=== PATIENT | female | born 1980 | race Caucasian/White ===

== ENCOUNTER → 2017-05-30 13:37 | Emergency (ER) | payer SELFPAY ==
[~2017-05-30] VITALS: Ht 152.4 cm; Wt 52.2 kg
[~2017-05-30 13:37] MED LIST: 0.9 % SODIUM CHLORIDE 10 ML DISP.SYRIN. IV PRN; AMOX1TAB61 PO; BENZ100C PO; HYDR-971 PO; IV NORMAL SALINE 1,000ML 1,000 ML IV ONE; IV NORMAL SALINE 50ML 50 ML ONE; LEVO500T59 PO; LIDOCAINE 1% Multi-Dose 20 ML VIAL. SQ ONE; MUPI15CR TP; NALOXONE 2 MG/2 ML DISP.SYRIN. IV ONE; NOREPINEPHRINE BITARTRATE 8 MG in IV NORMAL SALINE 250ML 250 ML IV PRN; PIPERACILLIN/TAZOBACTAM 4.5 GM VIAL IV ONE; PIPERACILLIN/TAZOBACTAM 4.5 GM in IV NORMAL SALINE 50ML 50 ML IV ONE; SULF1TAB24 PO; VANCOMYCIN 1.25 GM in IV NORMAL SALINE 250ML 250 ML IV ONE; VANCOMYCIN PER PHARMACY MC ONE
[2017-05-30 14:19] LABS: BASO % 0 % (0-3); EOS % 0 % (0-3); HEMATOCRIT 39.3 % (36.0-47.0); HEMOGLOBIN 13.4 g/dL (12.0-15.5); LYMPH # 0.9 x10^3/uL (1.0-4.8); LYMPH % 12 % (24-48); MEAN CORPUSCULAR HEMOGLOBIN 29 pg (25-35); MEAN CORPUSCULAR HGB CONC 34 g/dL (31-37); MEAN CORPUSCULAR VOLUME 84 fL (79-100); MONO # 0.5 x10^3/uL (0.0-1.1); MONO % 6 % (0-9); NEUT # 6.6 x10^3uL (1.8-7.7); NEUT % 82 % (31-73); PLATELET COUNT 196 x10^3/uL (140-400); RED BLOOD COUNT 4.68 x10^6/uL (3.50-5.40); RED CELL DISTRIBUTION WIDTH 14.2 % (11.5-14.5); WHITE BLOOD COUNT 8.1 x10^3/uL (4.0-11.0)
[2017-05-30 14:29] LABS: ALBUMIN 3.1 g/dL (3.4-5.0); ALBUMIN/GLOBULIN RATIO 0.8 (1.0-1.7); CALCIUM 8.3 mg/dL (8.5-10.1); CREATININE 0.8 mg/dL (0.6-1.0); GFR 82.1; POTASSIUM 3.7 mmol/L (3.5-5.1); TOTAL BILIRUBIN 0.3 mg/dL (0.2-1.0); TOTAL PROTEIN 6.8 g/dL (6.4-8.2)
[2017-05-30 14:30] LABS: PREG TEST PT QUAL NEGATIVE (NEG)
--- NOTE | 2017-05-30 15:11 | RAD ---
History: Cellulitis, drug use. Comparison: None. Findings: AP and lateral views of the right forearm. No radiopaque soft tissue foreign body is seen. No acute osseous abnormality is identified. Bandage has been placed placed on the dorsal aspect of the forearm. There is a focal dorsal forearm soft tissue swelling. No focal soft tissue gas is seen. Impression: 1. Dorsal soft tissue swelling of the forearm. 2. No acute osseous identified. Electronically signed by: Quoc Jaimes MD (05/30/2017 3:08 PM) [place] [id number]
[2017-05-30 17:00] VITALS: BP 82/46
--- NOTE | 2017-05-30 17:08 | PHYS DOC ---
Past History Past Medical History: Other Past Surgical History: Cholecystectomy Alcohol Use: None Drug Use: Opiates Adult General Chief Complaint Chief Complaint: DRUG ABUSE HPI HPI Patient is a 36 year old F who presents after overdosing on IV heroin. She will arrived to the emergency room via EMS after being given Narcan intranasally. Initially her respirations were 4/m. She did respond to the Narcan. She also has a wound on her right arm this and present for 2-3 days has spread rapidly. She notes mild drainage, moderate swelling and moderate pain. She believes that this is at the site of previous IV drug use. She has no other associated symptoms at this time Review of Systems Review of Systems Constitutional: Denies fever or chills [] Eyes: Denies change in visual acuity, redness, or eye pain [] HENT: Denies nasal congestion or sore throat [] Respiratory: Denies cough or shortness of breath [] Cardiovascular: No additional information not addressed in HPI [] GI: Denies abdominal pain, nausea, vomiting, bloody stools or diarrhea [] : Denies dysuria or hematuria [] Musculoskeletal: Denies back pain or joint pain [] Integument: Negative except history of present illness Neurologic: Denies headache, focal weakness or sensory changes [] Endocrine: Denies polyuria or polydipsia [] Psych: Denies suicidal or homicidal ideations All other systems were reviewed and found to be within normal limits, except as documented in this note. Family History Family History No pertinent family medical history was reported Current Medications Current Medications Current medications were reviewed Current Medications Medications (Trade) Dose Ordered Sig/Nas Start Time Stop Time Status Last Admin Dose Admin Lidocaine HCl 20 ml 1X ONCE 05/30/17 16:00 05/30/17 16:01 DC Naloxone HCl (Narcan) 2 mg 1X ONCE 05/30/17 15:30 05/30/17 15:31 DC Norepinephrine Bitartrate 8 mg/ Sodium Chloride 258 ml @ 0 mls/hr CONT PRN 05/30/17 14:00 Piperacillin Sod/ Tazobactam Sod (Zosyn) 4.5 gm STK-MED ONCE 05/30/17 14:08 05/30/17 14:09 DC Piperacillin Sod/ Tazobactam Sod 4.5 gm/Sodium Chloride 50 ml @ 100 mls/hr 1X ONCE 05/30/17 14:30 05/30/17 14:59 DC 05/30/17 14:16 100 MLS/HR Sodium Chloride 50 ml @ As Directed STK-MED ONCE 05/30/17 14:08 05/30/17 14:09 DC Sodium Chloride (Normal Saline Flush) 10 ml QSHIFT PRN 05/30/17 14:00 Vancomycin HCl (Vanco Per Pharmacy) 1 each 1X ONCE 05/30/17 14:00 05/30/17 14:16 DC Vancomycin HCl 1.25 gm/Sodium Chloride 250 ml @ 166.667 mls/hr 1X ONCE 05/30/17 14:30 05/30/17 15:59 DC 05/30/17 14:57 166.667 MLS/HR Allergies Allergies Allergies Coded Allergies Type Severity Reaction Last Updated Verified No Known Drug Allergies 02/04/16 No Physical Exam Physical Exam Constitutional: Well developed, well nourished, intermittently lethargic HENT: Normocephalic, atraumatic Eyes: EOMI, conjunctiva normal, no discharge. [] Neck: Normal range of motion, no tenderness, supple, no stridor. [] Cardiovascular:Heart rate regular rhythm, r Lungs & Thorax: Bilateral breath sounds clear to auscultation [] Abdomen: Bowel sounds normal, soft, no tenderness, no masses, no pulsatile masses. [] Skin: Right forearm: Erythema covering approximately 50% of the forearm mostly on the lateral side. Abscess noted with approximately 3 cm in diameter and black central eschar. Multiple areas of flocculence noted. Moderate swelling in the entire right forearm with significant pain to minimal palpation Back: No tenderness, no CVA tenderness. [] Extremities: No tenderness, no cyanosis, no clubbing, ROM intact, no edema. [] Neurologic: Alert and oriented X 3, normal motor function, normal sensory function, no focal deficits noted. [] Psychologic: Affect normal, judgement normal, mood normal. [] Current Patient Data Vital Signs Please review nursing documentation for vital signs Lab Results Laboratory Tests Test 05/30/17 14:03 White Blood Count 8.1 x10^3/uL (4.0-11.0) Red Blood Count 4.68 x10^6/uL (3.50-5.40) Hemoglobin 13.4 g/dL (12.0-15.5) Hematocrit 39.3 % (36.0-47.0) Mean Corpuscular Volume 84 fL (79-100) Mean Corpuscular Hemoglobin 29 pg (25-35) Mean Corpuscular Hemoglobin Concent 34 g/dL (31-37) Red Cell Distribution Width 14.2 % (11.5-14.5) Platelet Count 196 x10^3/uL (140-400) Neutrophils (%) (Auto) 82 % (31-73) H Lymphocytes (%) (Auto) 12 % (24-48) L Monocytes (%) (Auto) 6 % (0-9) Eosinophils (%) (Auto) 0 % (0-3) Basophils (%) (Auto) 0 % (0-3) Neutrophils # (Auto) 6.6 x10^3uL (1.8-7.7) Lymphocytes # (Auto) 0.9 x10^3/uL (1.0-4.8) L Monocytes # (Auto) 0.5 x10^3/uL (0.0-1.1) Eosinophils # (Auto) 0.0 x10^3/uL (0.0-0.7) Basophils # (Auto) 0.0 x10^3/uL (0.0-0.2) Sodium Level 132 mmol/L (136-145) L Potassium Level 3.7 mmol/L (3.5-5.1) Chloride Level 99 mmol/L (98-107) Carbon Dioxide Level 29 mmol/L (21-32) Anion Gap 4 (6-14) L Blood Urea Nitrogen 14 mg/dL (7-20) Creatinine 0.8 mg/dL (0.6-1.0) Estimated GFR (Cockcroft-Gault) 82.1 BUN/Creatinine Ratio 18 (6-20) Glucose Level 141 mg/dL (70-99) H Lactic Acid Level 1.3 mmol/L (0.4-2.0) Calcium Level 8.3 mg/dL (8.5-10.1) L Total Bilirubin 0.3 mg/dL (0.2-1.0) Aspartate Amino Transferase (AST) 23 U/L (15-37) Alanine Aminotransferase (ALT) 37 U/L (14-59) Alkaline Phosphatase 100 U/L (46-116) Total Protein 6.8 g/dL (6.4-8.2) Albumin 3.1 g/dL (3.4-5.0) L Albumin/Globulin Ratio 0.8 (1.0-1.7) L Serum Test, Qualitative Negative (NEG) EKG EKG [] Radiology/Procedures Radiology/Procedures Forearm x-ray Impressions: Soft tissue swelling without noted gas Course & Med Decision Making Course & Med Decision Making Pertinent Labs and Imaging studies reviewed. (See chart for details) Jodee was consented for incision and drainage. Her wound was cleaned with chlorhexidine wipes prior to anesthetizing the wound with lidocaine 1%. Her wound was then opened using an 11 blade scalpel. Moderate amount of purulent bloody drainage was noted. Her wound was packed with iodoform gauze and covered with gauze for observance and Kerlix. She was given IV fluids, vancomycin and Zosyn. She also did require a second dose of Narcan. It was explained to her that the Narcan is very short acting. It was explained that heroin is likely to last longer than the Narcan and that she still may from an overdose of heroin if she leaves. She did express understanding. Admission was strongly recommended and declined. was advised that her condition may result in or permanent disability. Jodee expressed understanding and continued to wish to leave AGAINST MEDICAL ADVICE Dragon Disclaimer Dragon Disclaimer This electronic medical record was generated, in whole or in part, using a voice recognition dictation system. Departure Departure: Impression: Primary Impression: Cellulitis and abscess of upper arm and forearm Additional Impression: Accidental heroin overdose Disposition: 07 AGAINST MEDICAL ADVICE Condition: GRAVE Referrals: PCP,NO (PCP) Patient Instructions: Heroin Abuse and Withdrawal Additional Instructions: Jodee was seen in the emergency department for an accidental heroin overdose and skin infection. She was treated with Narcan to reverse the heroin on 2 different occasions. She was advised that the Narcan is very short acting and that the heroin is likely to continue to affect her after the Narcan wears off. It was explained that she could still have a fatal accident from this heroin usage. Her wound was cleaned and drained. She was advised that admission for IV antibiotics would be the best treatment. She was advised that without hospitalization complications may result in or permanent disability. She was given a prescription for oral antibiotics as she decided to leave AGAINST MEDICAL ADVICE Scripts Amoxicillin/Potassium Clav (AUGMENTIN 875-125 TABLET) 1 Each Tablet 1 TAB PO BID for 14 Days, #28 TAB Prov: LEYLA OLSEN MD 05/30/17 Problem Qualifiers LEYLA OLSEN MD May 30, 2017 17:08
== END | disposition left against medical advice (07) ==
LOC: ER 13:37
DX: L03.113 Cellulitis of right upper limb (principal); T40.1X1A Poisoning by heroin, accidental (unintentional), initial encounter; Y92.89 Other specified places as the place of occurrence of the external cause; F11.10 Opioid abuse, uncomplicated
CPT/HCPCS: 10060; 36415; 73090; 80053; 83605; 84703; 85025; 87040; 96365; 96366; 96367; 99285; J2543; J3370; J7050; J7030

== ENCOUNTER 2019-12-07 21:13 | Emergency (ER) | payer SELFPAY ==
[~2019-12-07] VITALS: Ht 165.1 cm; Wt 60.4 kg
[~2019-12-07 21:13] MED LIST changes: -0.9 % SODIUM CHLORIDE 10 ML DISP.SYRIN. IV PRN; +HYDR-3165 PO; -HYDR-971 PO; -IV NORMAL SALINE 1,000ML 1,000 ML IV ONE; -IV NORMAL SALINE 50ML 50 ML ONE; -LIDOCAINE 1% Multi-Dose 20 ML VIAL. SQ ONE; -NALOXONE 2 MG/2 ML DISP.SYRIN. IV ONE; -NOREPINEPHRINE BITARTRATE 8 MG in IV NORMAL SALINE 250ML 250 ML IV PRN; -PIPERACILLIN/TAZOBACTAM 4.5 GM VIAL IV ONE; -PIPERACILLIN/TAZOBACTAM 4.5 GM in IV NORMAL SALINE 50ML 50 ML IV ONE; -VANCOMYCIN 1.25 GM in IV NORMAL SALINE 250ML 250 ML IV ONE; -VANCOMYCIN PER PHARMACY MC ONE
--- NOTE | 2019-12-07 21:30 | PHYS DOC ---
Past History Past Medical History: No Pertinent History Past Surgical History: No Surgical History Alcohol Use: None Drug Use: Heroin Adult General Chief Complaint Chief Complaint: OB/UTERINE CONTRACTIONS HPI HPI Patient is a 39-year-old female who presents status post water breaking. She reports being -0-2-3 and estimates being around her due date. She has not sought any care, has not taken any medications, just found out she was 1 week ago. She reports last period was greater than 9 months ago. She has long history of drug abuse, specifically heroin, but is not abused this in past 1 year per her report. She reports "I am not supposed to be ". Reports previous deliveries were spontaneous vaginal deliveries. 2 abortions were elective in nature. She does not know her blood type. Review of Systems Review of Systems Fourteen body systems of review of systems have been reviewed. See HPI for pertinent positives and negative responses, other alexander all other systems are negative, non-pertinent or non-contributory Allergies Allergies Allergies Coded Allergies Type Severity Reaction Last Updated Verified No Known Drug Allergies 02/04/16 No Physical Exam Physical Exam Constitutional: Well developed, well nourished, no acute distress, non-toxic appearance. HENT: Normocephalic, atraumatic, bilateral external ears normal, oropharynx moist, no oral exudates, nose normal. Eyes: PERRLA, EOMI, conjunctiva normal, no discharge. Neck: Normal range of motion, no tenderness, supple, no stridor. Cardiovascular: Heart rate regular, sinus rhythm, no murmurs rubs or gallops Lungs & Thorax: Bilateral breath sounds clear to auscultation Abdomen: Bowel sounds normal, gravid abdomen soft, no tenderness, no masses, no pulsatile masses. Nonsurgical abdomen, no peritoneal signs. heart tones 138. head down, OA presentation Skin: Warm, dry, no erythema, no rash. Back: No tenderness, no CVA tenderness. Extremities: No tenderness, no cyanosis, no clubbing, ROM intact, no edema. Track ray present on bilateral upper extremities : Unremarkable external genitalia. Cervical dilation 6 cm / 80% effacement/+1 station Neurologic: Alert and oriented X 3, grossly normal motor & sensory function, no focal deficits noted. Psychologic: Tearful, anxious mood, judgement normal. Current Patient Data Vital Signs Vital Signs Date Time Temp Pulse Resp B/P (MAP) Pulse Ox O2 Delivery O2 Flow Rate FiO2 12/07/19 21:43 98.2 95 16 113/64 (80) 98 Room Air 12/07/19 21:22 98.2 112 16 114/74 (87) 98 Room Air EKG EKG [] Radiology/Procedures Radiology/Procedures [] Course & Med Decision Making Course & Med Decision Making Patient immediately wheeled to trauma bay and seen and evaluated by myself ABCs unremarkable Expedited history and physical exam obtained, patient obviously and in first stage of labor As mentioned above, cervical check by myself remarkable for 6 cm dilation/80% effacement/+1 station. heart tones 138. Patient denies any coordinated/contractions and no way to measure this in our ER Case discussed with on-call [facility] PARTUM NURSE, Dr. Young, joint decision to transfer emergently to [facility] for higher acuity of care I discussed this with patient. I discussed that given close proximity to [facility], my professional judgment in consultation with Dr. Young determined there was sufficient time to emergently transport patient for POST PARTUM NURSE care Although patient in labor, patient stable at present for emergent EMS transport to [facility] for impending delivery Dragon Disclaimer Dragon Disclaimer This electronic medical record was generated, in whole or in part, using a voice recognition dictation system. Departure Departure: Impression: Primary Impression: Active labor Disposition: 05 TRANSFER OTHER ([facility]) Admitting Physician: Other (Dr. Young) Condition: STABLE Referrals: PCP,NO (PCP) Justification of Admission: Justification of Admission: Justification of Admission Dx: Yes (active labor) PRESTON FRIEND DO Dec 07, 2019 21:30
[2019-12-07 21:43] VITALS: BP 113/64
== END 2019-12-07 21:45 | disposition short-term general hospital (02) ==
LOC: ER 21:13
DX: O75.89 Other specified complications of labor and delivery (principal); Z3A.00 Weeks of gestation of pregnancy not specified
CPT/HCPCS: 36415; 86850; 86900; 86901; 99285